=== PATIENT | male | born 1995 | race African-American/Black ===

== ENCOUNTER 2019-06-16 12:14 | Emergency (ER) | payer OTHER ==
[~2019-06-16] VITALS: Ht 195.6 cm; Wt 123.8 kg
[2019-06-16 13:06] LABS: ABSOLUTE NEUTROPHILS 2.5 thou/uL (1.4-8.2); BASOPHILS 0.9 % (0.0-2.0); EOSINOPHILS 1.1 % (0.0-3.0); HEMATOCRIT 43.3 % (42.0-52.0); HEMOGLOBIN 14.5 gm/dL (14.0-18.0); LYMPHOCYTES 47.8 % (24.0-44.0); MCHC 33.5 g/dL (28.0-37.0); MCV 86.7 fL (80.0-100.0); MONOCYTES 5.6 % (1.0-8.0); PLATELET COUNT 161 thou/uL (150-400); POLYS 44.6 % (36.0-66.0); RBC 4.99 mil/uL (4.50-6.00); RDW 11.9 % (10.5-14.5); WBC 5.5 thou/uL (4.0-11.0)
[2019-06-16 13:55] LABS: URINE BILIRUBIN NEGATIVE (Negative); URINE BLOOD NEGATIVE (Negative); URINE CLARITY CLEAR; URINE COLOR YELLOW; URINE GLUCOSE-RANDOM* NEGATIVE (Negative); URINE KETONES NEGATIVE (Negative); URINE LEUKOCYTES-REFLEX NEGATIVE (Negative); URINE NITRITE-REFLEX NEGATIVE (Negative); URINE PROTEIN (DIPSTICK) NEGATIVE (Negative); URINE SPECIFIC GRAVITY 1.025 (1.005-1.035); URINE UROBILINOGEN 0.2 E.U./dl (0.2-1.0)
[2019-06-16 14:02] LABS: AMP/METHAMP Negative (Negative); BARBITURATES Negative (Negative); BENZODIAZEPINES Negative (Negative); COCAINE Negative (Negative); METHADONE Negative (Negative); OPIATES Negative (Negative); PCP Negative (Negative)
[2019-06-16 14:57] VITALS: BP 164/87
== END 2019-06-16 15:02 | disposition home or self-care (01) ==
LOC: ER 12:14
PROVIDERS: Nurse Practitioner Family
DX: S00.83XA Contusion of other part of head, initial encounter (principal); Z91.030 Bee allergy status; Z91.018 Allergy to other foods; Z91.013 Allergy to seafood; W50.1XXA Accidental kick by another person, initial encounter; Y92.89 Other specified places as the place of occurrence of the external cause; Y99.0 Civilian activity done for income or pay; Y99.8 Other external cause status

== ENCOUNTER 2020-04-08 19:38 | Emergency (ER) | payer OTHER ==
[~2020-04-08] VITALS: Ht 193 cm; Wt 127.0 kg
[2020-04-08 19:44] VITALS: BP 138/77
[2020-04-08] MEDS ORDERED: TRIMETHOPRIM /P10 M1 OPHTHALMIC (20:20)
== END 2020-04-08 20:27 | disposition home or self-care (01) ==
LOC: ER 19:38
DX: S00.81XA Abrasion of other part of head, initial encounter (principal); H57.11 Ocular pain, right eye; H53.8 Other visual disturbances; Z91.030 Bee allergy status; Z91.018 Allergy to other foods; Z91.013 Allergy to seafood; W50.4XXA Accidental scratch by another person, initial encounter; Y93.89 Activity, other specified; Y92.128 Other place in nursing home as the place of occurrence of the external cause; Y99.8 Other external cause status

== ENCOUNTER 2020-04-11 17:51 | Emergency (ER) | payer OTHER ==
[~2020-04-11] VITALS: Ht 195.6 cm; Wt 127.0 kg
[~2020-04-11 17:51] MED LIST: TRIMETHOPRIM /P10 M1 OPHTHALMIC
[2020-04-11 18:56] LABS: ABSOLUTE NEUTROPHILS 3.2 thou/uL (1.4-8.2); BASOPHILS 0.6 % (0.0-2.0); EOSINOPHILS 1.8 % (0.0-3.0); HEMATOCRIT 45.8 % (42.0-52.0); HEMOGLOBIN 15.2 gm/dL (14.0-18.0); LYMPHOCYTES 43.4 % (24.0-44.0); MCH 29.4 pg (26.0-34.0); MCHC 33.3 g/dL (28.0-37.0); MCV 88.3 fL (80.0-100.0); MONOCYTES 6.9 % (1.0-8.0); PLATELET COUNT 166 thou/uL (150-400); POLYS 47.3 % (36.0-66.0); RBC 5.18 mil/uL (4.50-6.00); RDW 11.9 % (10.5-14.5); WBC 6.8 thou/uL (4.0-11.0)
[2020-04-11 19:08] LABS: CALCIUM 8.8 mg/dL (8.5-10.1); CREATININE 1.3 mg/dL (0.7-1.3); POTASSIUM 4.2 mmol/L (3.5-5.1)
[2020-04-11 19:15] LABS: ALBUMIN 3.9 g/dL (3.4-5.0); MAGNESIUM 2.1 mg/dL (1.8-2.4); TOTAL BILIRUBIN 0.8 mg/dL (<0.1-1.0); TOTAL PROTEIN 6.8 g/dL (6.4-8.2)
[2020-04-11 19:39] LABS: URINE BILIRUBIN NEGATIVE (Negative); URINE BLOOD NEGATIVE (Negative); URINE CLARITY CLEAR; URINE COLOR YELLOW; URINE GLUCOSE-RANDOM* NEGATIVE (Negative); URINE KETONES NEGATIVE (Negative); URINE LEUKOCYTES-REFLEX NEGATIVE (Negative); URINE NITRITE-REFLEX NEGATIVE (Negative); URINE PROTEIN (DIPSTICK) NEGATIVE (Negative)
[2020-04-11 19:47] LABS: AMP/METHAMP Negative (Negative); BARBITURATES Negative (Negative); BENZODIAZEPINES Negative (Negative); COCAINE Negative (Negative); METHADONE Negative (Negative); OPIATES Negative (Negative); PCP Negative (Negative)
[2020-04-11 21:38] VITALS: BP 119/85
== END 2020-04-11 21:46 | disposition home or self-care (01) ==
LOC: ER 17:51
PROVIDERS: Emergency Medicine
DX: S09.90XA Unspecified injury of head, initial encounter (principal); G40.909 Epilepsy, unspecified, not intractable, without status epilepticus; R41.0 Disorientation, unspecified; M54.6 Pain in thoracic spine; Z79.899 Other long term (current) drug therapy; Z91.030 Bee allergy status; Z91.018 Allergy to other foods; Z91.013 Allergy to seafood; Y04.2XXA Assault by strike against or bumped into by another person, initial encounter; Y93.89 Activity, other specified; Y92.128 Other place in nursing home as the place of occurrence of the external cause; Y99.8 Other external cause status